=== PATIENT | female | born 1935 | race Caucasian/White ===

== ENCOUNTER → 2020-07-28 | Outpatient (CLI) | payer OTHER | END | disposition home or self-care (01) | LOC: SHCH 10:58 | PROVIDERS: ATTEND Internal Medicine Cardiovascular Disease | DX: I06.1 Rheumatic aortic insufficiency (principal); I48.92 Unspecified atrial flutter | CPT/HCPCS: 93306; 93356 ==

== ENCOUNTER → 2020-09-02 | Outpatient (CLI) | payer OTHER | END | disposition home or self-care (01) | LOC: RAH 13:33 | PROVIDERS: ATTEND Internal Medicine Critical Care Medicine | DX: I65.23 Occlusion and stenosis of bilateral carotid arteries (principal); I63.9 Cerebral infarction, unspecified | CPT/HCPCS: 93880 ==

== ENCOUNTER → 2022-06-07 | Outpatient (CLI) | payer OTHER ==
[2022-06-07 16:29] LABS: BASOPHILS % (AUTO) 1.1 % (0.0-5.0); EOSINOPHILS % (AUTO) 3.8 % (0.0-8.0); HEMATOCRIT 35.1 % (36-48); LYMPHOCYTES % (AUTO) 32.9 % (21.0-51.0); MEAN CORPUSCULAR HEMOGLOBIN 30.7 pg (27.0-33.0); MEAN CORPUSCULAR HGB CONC 31.3 g/dL (32.0-36.0); MONOCYTES % (AUTO) 11.7 % (3.0-13.0); NEUTROPHILS % (AUTO) 50.2 % (40.0-77.0); PLATELET COUNT (AUTO) 202 K/uL (130-400); RED BLOOD CELL COUNT(AUTO) 3.58 MIL/uL (4.00-5.50); RED CELL DISTRIBUTION WIDTH 13.4 % (11.0-15.5); WHITE BLOOD COUNT (AUTO) 7.4 K/uL (4.8-10.8)
[2022-06-07 16:50] LABS: CREATININE 1.1 mg/dL (0.5-1.5); POTASSIUM 4.3 mmol/L (3.5-5.1)
== END | disposition home or self-care (01) ==
LOC: LAB 15:46
PROVIDERS: ATTEND Internal Medicine Cardiovascular Disease
DX: I10 Essential (primary) hypertension (principal)
CPT/HCPCS: 36415; 80048; 85025

== ENCOUNTER 2024-01-28 11:39 | Inpatient (IN) | payer OTHER ==
[~2024-01-28] VITALS: Ht 154.9 cm; Wt 49.5 kg
[2024-01-28 12:25] LABS: BASOPHILS # (AUTO) 0.02 K/uL (0.00-0.20); BASOPHILS % (AUTO) 0.2 % (0.0-5.0); EOSINOPHILS # (AUTO) 0.05 K/uL (0.00-0.70); EOSINOPHILS % (AUTO) 0.5 % (0.0-8.0); IMMATURE GRANULOCYTE ABSOLUTE 0.04 K/uL (0-1); LYMPHOCYTES # (AUTO) 1.1 K/uL (1.0-4.8); LYMPHOCYTES % (AUTO) 11.4 % (21.0-51.0); MEAN CORPUSCULAR HEMOGLOBIN 31.1 pg (27.0-33.0); MEAN CORPUSCULAR HGB CONC 33.6 g/dL (32.0-36.0); MEAN CORPUSCULAR VOLUME 92.6 fL (79-99); MONOCYTES # (AUTO) 0.7 K/uL (0.1-1.0); MONOCYTES % (AUTO) 6.7 % (3.0-13.0); NEUTROPHILS # (AUTO) 7.9 K/uL (1.8-7.7); NEUTROPHILS % (AUTO) 80.8 % (40.0-77.0); PLATELET COUNT (AUTO) 234 K/uL (130-400); RED BLOOD CELL COUNT(AUTO) 4.86 MIL/uL (4.00-5.50); RED CELL DISTRIBUTION WIDTH 13.3 % (11.0-15.5); WHITE BLOOD COUNT (AUTO) 9.7 K/uL (4.8-10.8)
[2024-01-28 12:26] LABS: CREATININE 1.2 mg/dL (0.5-1.0); MAGNESIUM 2.1 mg/dL (1.80-2.40); POTASSIUM 3.1 mmol/L (3.5-5.1)
[2024-01-28] MEDS: metoPROLOL tartRATE 1 MG/ML 5ML VIAL IV ONE ×2 (12:32→15:32)
[2024-01-28] MEDS: APIXaban 2.5 MG TABLET PO ONE (13:05)
[2024-01-28 13:16] LABS: APPEARANCE,URINE CLOUDY (CLEAR); BILIRUBIN,URINE NEGATIVE (NEGATIVE); COLOR,URINE YELLOW (YELLOW); GLUCOSE, URINE (UA) NEGATIVE (NEGATIVE); KETONES,URINE 20 mg/dL (NEGATIVE); LEUKOCYTE ESTERASE ,URINE NEGATIVE Leu/uL (NEGATIVE); NITRATE,URINE NEGATIVE (NEGATIVE); OCCULT BLOOD,URINE MODERATE (NEGATIVE); PROTEIN,URINE 200 mg/dL (NEGATIVE)
[2024-01-28 13:20] LABS: B-TYPE NATRIURETIC PEPTIDE 314 pg/mL (0-100)
[2024-01-28] MEDS ORDERED: PoTASSium chloRIDE 20MEQ ER 20 MEQ ERTAB PO ONE (13:30)
[2024-01-28 13:32] LABS: ADD UA MICROSCOPIC YES
[2024-01-28 13:50] LABS: BACTERIA,URINE MANY /HPF (None Seen); MUCUS,URINE RARE LPF (None Seen)
[2024-01-28] MEDS: 0.9% NACL 500ML IV.SOLN 500 ML IV ONE (14:02)
[2024-01-28] MEDS: PoTASSium BIcarbonate/CIT AC 25 MEQ TABLET.EFF PO ONE (14:15)
[2024-01-28] MEDS: ondanSETRON 4MG INJ IVP ONE (14:15)
[2024-01-28] MEDS: acetaMINOPHEN 325 MG TAB PO ONE (16:08)
[2024-01-28] MEDS ORDERED: NITROGLYCERIN 0.4 MG SL TAB SL PRN (16:30)
[2024-01-28] MEDS ORDERED: MAG PO PRN (16:30)
[2024-01-28] MEDS ORDERED: polyETHYLene GLYCol 3350 17 GM POWD.PACK PO PRN (16:30)
[2024-01-28] MEDS ORDERED: LOPERAMIDE HCL 2 MG CAP PO PRN (16:30)
[2024-01-28] MEDS ORDERED: DiphenhydrAMINE HCL 25 MG CAPSULE PO PRN (16:30)
[2024-01-28] MEDS ORDERED: doCUSate SODIUM 100 MG CAP PO PRN (16:30)
[2024-01-28] MEDS ORDERED: DEXTROSE 50%-WATER 50 ML DISP.SYRIN IV PRN (16:30)
[2024-01-28] MEDS ORDERED: ALPRAZolam 0.5 MG TABLET PO PRN (16:30)
[2024-01-28] MEDS ORDERED: ondanSETRON 4MG INJ IV PRN (16:30)
[2024-01-28] MEDS ORDERED: DICYCLOMINE HCL PO PRN (16:30)
[2024-01-28] MEDS ORDERED: ARTIFICAL TEARS SOL 15 ML OP PRN ×2 (16:30→19:30)
[2024-01-28] MEDS ORDERED: ALUM PO PRN (16:30)
[2024-01-28] MEDS ORDERED: acetaMINOPHEN 325 MG TAB PO PRN ×2 (16:30)
[2024-01-28] MEDS ORDERED: guaiFENesin-DM 200/20MG 10ML PO PRN (16:30)
[2024-01-28] MEDS ORDERED: LIDOCAINE HCL 2% PO PRN (16:30)
[2024-01-28] MEDS ORDERED: VISCOUS PO PRN (16:30)
[2024-01-28] MEDS ORDERED: guaiFENesin SUGAR-FREE 100 MG/5 ML UDCUP PO PRN (16:30)
[2024-01-28] MEDS ORDERED: BENZOCAINE/MENTH/CETYLPYRD CL 1 EACH LOZENGE MM PRN (16:30)
[2024-01-28] MEDS ORDERED: SIMETH PO PRN (16:30)
[2024-01-28] MEDS: INSULIN LISpro 100 UNIT/ML 3ML SQ SCH (16:30)
[2024-01-28] MEDS ORDERED: GLUCAGON 1MG KIT 1 MG ML IM PRN (16:30)
[2024-01-28] MEDS: CEFTRIAXONE 2GM VIAL IVPB SCH (17:40)
[2024-01-28] MEDS: 0.9%NACL 1000ML 1,000 ML IV SCH (17:40)
[2024-01-28] MEDS ORDERED: LOSA50TA64 PO (20:47)
[2024-01-28] MEDS ORDERED: AMLO2.5T4 PO (20:47)
[2024-01-28] MEDS ORDERED: ROSU20TA73 PO (20:47)
[2024-01-28] MEDS ORDERED: APIX2.5T PO (20:47)
[2024-01-28] MEDS ORDERED: DONE10TA43 PO (20:47)
[2024-01-28] MEDS ORDERED: ANAS1TAB49 PO (20:47)
[2024-01-28] MEDS ORDERED: METO-408 PO (20:47)
[2024-01-28] MEDS: FAMOTIDINE 20MG TAB PO SCH (20:55)
[2024-01-28] MEDS: metoPROLOL tartRATE 25 MG TAB PO SCH (20:55)
[2024-01-29] VITALS (9 sets, daily range): BP systolic 136–191; BP diastolic 70–94; PULSE 74–86; RESP 18; TEMP 97.7–98.6; O2SAT 98
[2024-01-29 03:40] LABS: BILIRUBIN,TOTAL 0.5 mg/dL (0.2-1.0); CREATININE 1.1 mg/dL (0.5-1.0); POTASSIUM 3.1 mmol/L (3.5-5.1); TOTAL PROTEIN, SERUM 7.1 g/dL (6.0-8.3)
[2024-01-29] MEDS: PoTASSium chloRIDE 20MEQ ER 20 MEQ ERTAB PO ONE (06:07)
[2024-01-29] MEDS: PoTASSium chl 10% ELIXIR 20MEQ 20 MEQ/15 ML UDCUP PO PRN (09:25)
[2024-01-29] MEDS ORDERED: PoTASSium chloRIDE 20MEQ ER 20 MEQ ERTAB PO PRN (09:30)
[2024-01-29] MEDS ORDERED: PoTASSium chloRIDE 20MEQ/100ML 100 ML IV PRN ×2 (09:30)
[2024-01-29] MEDS: APIXaban 2.5 MG TABLET PO SCH (13:46)
[2024-01-29] MEDS: doNEPEZil HCL 5 MG TAB PO SCH (20:26)
[2024-01-30] VITALS (9 sets, daily range): BP systolic 121–164; BP diastolic 55–87; PULSE 76–120; RESP 18; TEMP 97.6–99; O2SAT 95–96
[2024-01-30] MEDS: hydrALAZine 20MG/ML VIAL IV PRN (00:15)
[2024-01-30] MEDS: AMIOdarone 150MG VIAL 150 MG in DEXTROSE 5%-WATER 100 ML IV SCH (02:01)
[2024-01-30] MEDS: MAGNESIUM 2GM PREMIX 50ML 50 ML IV SCH (02:16)
[2024-01-30] MEDS: PoTASSium chl 10% ELIXIR 20MEQ 20 MEQ/15 ML UDCUP PO ONE (02:17)
[2024-01-30] MEDS: AMIOdarone 900MG VIAL 150 MG in DEXTROSE 5%-WATER 100 ML IV SCH (03:14)
[2024-01-30] MEDS: AMIOdarone 900MG VIAL 360 MG in DEXTROSE 5%-WATER 200 ML IV SCH (03:15)
[2024-01-30 06:46] LABS: BASOPHILS # (AUTO) 0.02 K/uL (0.00-0.20); BASOPHILS % (AUTO) 0.2 % (0.0-5.0); EOSINOPHILS # (AUTO) 0.11 K/uL (0.00-0.70); IMMATURE GRANULOCYTE ABSOLUTE 0.04 K/uL (0-1); LYMPHOCYTES # (AUTO) 0.7 K/uL (1.0-4.8); LYMPHOCYTES % (AUTO) 6.4 % (21.0-51.0); MEAN CORPUSCULAR HEMOGLOBIN 31.4 pg (27.0-33.0); MEAN CORPUSCULAR HGB CONC 33.2 g/dL (32.0-36.0); MEAN CORPUSCULAR VOLUME 94.6 fL (79-99); MONOCYTES # (AUTO) 0.5 K/uL (0.1-1.0); MONOCYTES % (AUTO) 4.8 % (3.0-13.0); NEUTROPHILS # (AUTO) 9.5 K/uL (1.8-7.7); NEUTROPHILS % (AUTO) 87.2 % (40.0-77.0); PLATELET COUNT (AUTO) 231 K/uL (130-400); RED BLOOD CELL COUNT(AUTO) 4.97 MIL/uL (4.00-5.50); RED CELL DISTRIBUTION WIDTH 13.6 % (11.0-15.5); WHITE BLOOD COUNT (AUTO) 10.8 K/uL (4.8-10.8)
[2024-01-30 06:59] LABS: CREATININE 0.9 mg/dL (0.5-1.0); POTASSIUM 4.5 mmol/L (3.5-5.1)
[2024-01-30] MEDS: amLODIPine 2.5 MG TAB PO SCH (09:02)
[2024-01-30] MEDS: AMIOdarone 900MG VIAL 540 MG in DEXTROSE 5%-WATER 300 ML IV ONE (09:41)
[2024-01-30] MEDS: ZOSYN 3.375GM +NS 50ML IV SCH (12:53)
[2024-01-30] MEDS: metoPROLOL tartRATE 25 MG TAB PO ONE (12:53)
[2024-01-30] MEDS: atorVAStatin 40 MG TABLET PO SCH (21:13)
[2024-01-30] MEDS: metoPROLOL tartRATE 25 MG TAB PO SCH (21:14)
[2024-01-31] VITALS (7 sets, daily range): BP systolic 103–151; BP diastolic 48–76; PULSE 62–85; RESP 16–18; TEMP 97.6–98.8; O2SAT 95–98
[2024-01-31 04:15] LABS: BASOPHILS # (AUTO) 0.04 K/uL (0.00-0.20); BASOPHILS % (AUTO) 0.4 % (0.0-5.0); HEMATOCRIT 40.4 % (36-48); IMMATURE GRANULOCYTE ABSOLUTE 0.03 K/uL (0-1); LYMPHOCYTES # (AUTO) 2.5 K/uL (1.0-4.8); LYMPHOCYTES % (AUTO) 25.2 % (21.0-51.0); MEAN CORPUSCULAR HEMOGLOBIN 31.6 pg (27.0-33.0); MEAN CORPUSCULAR HGB CONC 33.9 g/dL (32.0-36.0); MEAN CORPUSCULAR VOLUME 93.3 fL (79-99); MONOCYTES # (AUTO) 1.1 K/uL (0.1-1.0); MONOCYTES % (AUTO) 11.2 % (3.0-13.0); NEUTROPHILS # (AUTO) 6.1 K/uL (1.8-7.7); NEUTROPHILS % (AUTO) 61.9 % (40.0-77.0); PLATELET COUNT (AUTO) 212 K/uL (130-400); RED BLOOD CELL COUNT(AUTO) 4.33 MIL/uL (4.00-5.50); RED CELL DISTRIBUTION WIDTH 13.6 % (11.0-15.5); WHITE BLOOD COUNT (AUTO) 9.9 K/uL (4.8-10.8)
[2024-01-31 04:24] LABS: CREATININE 0.9 mg/dL (0.5-1.0); MAGNESIUM 2.1 mg/dL (1.80-2.40); POTASSIUM 3.5 mmol/L (3.5-5.1)
[2024-01-31 04:39] LABS: INR 1.16 (0.85-1.15); PROTHROMBIN TIME 12.4 SEC (9.6-11.6)
[2024-01-31 04:40] LABS: PARTIAL THROMBOPLASTIN TIME 26.8 SEC (26.3-35.5)
[2024-01-31] MEDS: LoSARTan 50 MG TABLET PO SCH (10:11)
[2024-01-31] MEDS: metoPROLOL tartRATE 50 MG TAB PO SCH (20:20)
[2024-02-01] VITALS (10 sets, daily range): BP systolic 125–166; BP diastolic 65–88; PULSE 75–89; RESP 16–18; TEMP 97.9–98.8; O2SAT 95
[2024-02-01] MEDS: LACTULOSE 20 GM/30 ML UDCUP PO PRN (11:36)
[2024-02-01 13:33] LABS: INR 1.11 (0.85-1.15); PROTHROMBIN TIME 11.9 SEC (9.6-11.6)
[2024-02-01 13:34] LABS: PARTIAL THROMBOPLASTIN TIME 25.9 SEC (26.3-35.5)
[2024-02-02] VITALS (7 sets, daily range): BP systolic 136–151; BP diastolic 61–83; PULSE 65–74; RESP 17–24; TEMP 98.3–98.9; O2SAT 96
[2024-02-02 08:36] LABS: MAGNESIUM 1.4 mg/dL (1.80-2.40); POTASSIUM 4.1 mmol/L (3.5-5.1)
[2024-02-03 00:02] VITALS: BP 155/85; PULSE 85; RESP 18; TEMP 98.6
[2024-02-03 03:52] VITALS: BP 159/78; PULSE 69; RESP 18; TEMP 97.9
[2024-02-03 07:15] VITALS: O2SAT 96
[2024-02-03 08:11] VITALS: BP 136/72; PULSE 80; RESP 18; TEMP 98.7
[2024-02-03 11:10] VITALS: BP 159/54; PULSE 74; RESP 18; TEMP 97.8
[2024-02-03] MEDS ORDERED: METO50 PO (12:32)
[2024-02-03 16:51] VITALS: BP 150/76; PULSE 90; RESP 18; TEMP 98.4
== END 2024-02-03 17:00 | DRG 280 ==
LOC: EDH 11:39 → EDHIP 16:08 → OBSVTOIN 16:08 → EDHIP 19:35 → 2DH 23:40
PROVIDERS: ADMIT Internal Medicine Critical Care Medicine; ATTEND Internal Medicine Critical Care Medicine
DX: I21.4 Non-ST elevation (NSTEMI) myocardial infarction (principal); N17.0 Acute kidney failure with tubular necrosis; I48.11 Longstanding persistent atrial fibrillation; N30.00 Acute cystitis without hematuria; I50.32 Chronic diastolic (congestive) heart failure; E87.1 Hypo-osmolality and hyponatremia; Z16.29 Resistance to other single specified antibiotic; I48.92 Unspecified atrial flutter; I48.0 Paroxysmal atrial fibrillation; I11.0 Hypertensive heart disease with heart failure; E78.00 Pure hypercholesterolemia, unspecified; K21.9 Gastro-esophageal reflux disease without esophagitis; E87.6 Hypokalemia; F03.90 Unspecified dementia, unspecified severity, without behavioral disturbance, psychotic disturbance, mood disturbance, and anxiety; E87.8 Other disorders of electrolyte and fluid balance, not elsewhere classified; E86.1 Hypovolemia; E78.5 Hyperlipidemia, unspecified; B96.20 Unspecified Escherichia coli [E. coli] as the cause of diseases classified elsewhere; Z79.01 Long term (current) use of anticoagulants; Z86.73 Personal history of transient ischemic attack (TIA), and cerebral infarction without residual deficits; Z90.49 Acquired absence of other specified parts of digestive tract; Z85.3 Personal history of malignant neoplasm of breast; Z90.710 Acquired absence of both cervix and uterus
CPT/HCPCS: 36415; 71045; 80048; 80053; 81001; 82948; 83036; 83605; 83735; 83880; 84145; 84484; 85025; 85610; 85730; 87086; 87186; 87426; 93005; G0378; J0282; J0360; J0696; J2405; J2543; J3475; J3490; J7030; J7040; J7060